=== PATIENT | female | born 1995 | race Caucasian/White ===

== ENCOUNTER 2022-01-11 15:24 | Emergency (ER) | payer BC, SELFPAY ==
[2022-01-11 15:43] VITALS: BP 131/94; PULSE 85; RESP 17; TEMP 36.6; O2SAT 100
[2022-01-11 16:11] LABS: Basophils Percent Auto 0.5 % (0.2-1.2); Eosinophils Absolute Auto 0.1 K/mm3 (0-0.3); Eosinophils Percent Auto 0.8 % (0-4.4); Hematocrit 40.7 % (37.0-47.0); Hemoglobin 13.9 g/dL (12.0-15.0); Immature Granulocyte Absolute 0.02 K/mm3 (0.00-0.031); Immature Granulocyte Percent A 0.3 % (0-0.5); Mean Corpuscular HGB Conc 34.2 g/dl (32-36); Mean Corpuscular Hemoglobin 29.1 pg (26-34); Mean Corpuscular Volume 85.3 fl (80-100); Mean Platelet Volume 9.7 fl (7.4-10.4); Monocytes Absolute Auto 0.4 K/mm3 (0.1-0.6); Monocytes Percent Auto 6.3 % (2.6-8.5); Neutrophils Absolute Auto 4.5 K/mm3 (1.3-6.7); Neutrophils Percent Auto 69.1 % (45.5-73.1); Platelet Count Result 293 k/mm3 (150-375); Red Blood Count 4.77 M/mm3 (4.2-5.4); Red Cell Distribution Width 12.7 % (11.5-14.5); White Blood Count 6.5 K/mm3 (4.5-10.0)
[2022-01-11 16:22] LABS: Alanine Aminotransferase 14 U/L (6-35); Albumin Level 4.2 g/dL (3.5-5.1); Alkaline Phosphatase 96 U/L (38-126); Anion Gap 7 mmol/L (8-16); Aspartate Amino Transferase 21 U/L (14-36); Bilirubin,Total 0.8 mg/dL (0.2-1.3); Blood Urea Nitrogen 7 mg/dL (7-17); Calcium 8.6 mg/dL (8.4-10.2); Carbon Dioxide 26 mmol/L (22-30); Chloride 105 mmol/L (98-107); Estimated CRCL calculation 133 ml/min; Estimated Glomerular Filt Rate > 60; Glucose 94 mg/dL (65-110); Lipase 50 U/L (23-300); Sodium 138 mmol/L (137-145)
[2022-01-11 16:32] LABS: Appearance Urine Slightly Cloudy (Clear); Bilirubin Urine 1+ (Negative); Blood Urine Negative (Negative); Color Urine Yellow (Yellow); Glucose Urine UA Negative (Negative); Ketones Urine Negative (Negative); Leukocyte Esterase Ur 2+ LEU/UL (Negative); Nitrate Urine Negative (Negative); Protein Urine 1+ mg/dL (Negative); Specific Grav Ur >= 1.030 (1.001-1.035); Urobilinogen Urine 0.2 mg/dL (<2.0); pH Urine 6.5 (5.0-9.0)
[2022-01-11 16:40] LABS: Bacteria Urine 1+ /hpf; Mucus Urine Heavy /lpf; RBC Urine 21-50 /hpf (0-2); Squamous Epithelial Cell Urine Many /hpf (Few); WBC Urine >75 /hpf
[2022-01-11 16:45] LABS: Add Urine Microscopic? YES
--- NOTE | 2022-01-11 17:50 | ED.ABDPAIN ---
HPI - Abdominal Pain General Chief Complaint: Abdominal Pain Stated Complaint: ABD PAIN X 2MONTHS Time Seen by Provider: 01/11/22 17:48 Source: patient Mode of arrival: ambulatory Limitations: no limitations History of Present Illness HPI narrative: Patient is a 26-year-old female who presents the ED with report of pain across her upper abdomen. Patient reports she has been dealing with this pain intermittently since she was 11 years old. She states the pain is random and does not occur every day. It does seem to be aggravated when she eats ice cream or milk, but not with other dairy products. She states Advil sometimes alleviates the pain. Over the past 2 months, patient reports having increasing pain. Today she had pain from around 7 AM to 12 PM. She did not take anything for the pain today. No report of pain upon my evaluation. Patient denies any other symptoms. Denies any fever, chills, nausea, vomiting, diarrhea, constipation, rectal bleeding, back pain, recent cough or cold symptoms, urinary frequency, dysuria, hematuria, hesitancy. Related Data Allergies Allergy/AdvReac Type Severity Reaction Status Date / Time amoxicillin Allergy Unknown Verified 12/09/15 08:21 Review of Systems Review of Systems: CONSTITUTIONAL: Denies fever, chills. ENT: Denies rhinorrhea, congestion, sore throat. CARDIOVASCULAR: Denies chest pain. RESPIRATORY: Denies cough or dyspnea. GASTROINTESTINAL: Reports pain across upper abdomen. Denies nausea, vomiting, rectal bleeding, constipation, or diarrhea. GENITOURINARY: Denies dysuria, frequency, hesitancy, or hematuria. MUSCULOSKELETAL: Denies back pain. NEUROLOGIC: Denies numbness, tingling, or weakness. All systems reviewed & are unremarkable except as noted in HPI and below PMFSH Past Medical History Medical History No pertinent past medical history Surgical History Surgical History (Updated 01/11/22 @ 18:37 by Roseann Mclean PA-C) No pertinent past surgical history Family History Family History (Updated 12/09/15 @ 08:22 by DOCTOR UNKNOWN) Other Family history of malignant melanoma Social History Social History Smoking status: Never smoker Alcohol intake: never Exam Narrative: GENERAL: Well appearing, well-nourished, non-toxic, in no acute distress. HEAD: Normocephalic, atraumatic. NECK: Supple. No adenopathy, no masses. RESPIRATORY: Airway patent, respirations nonlabored. Clear to auscultation bilaterally, no rales, rhonchi, wheezing. CARDIOVASCULAR: Regular rate and rhythm without murmurs, rubs, or gallops. Radial pulses 2+ and equal bilaterally. ABDOMINAL: Soft, no significant tenderness to palpation in any quadrant, nondistended, no hepatosplenomegaly. Normoactive BS. MUSCULOSKELETAL: Moves all extremities. Strength/ROM intact without gross deformities or TTP. SKIN: Warm, dry, normal color. No rashes. NEURO: A&O X3. Speech clear. Cranial nerves II-XII grossly intact. Steady gait. No ataxic movements. PSYCHIATRIC: Appropriate mood and affect. Normal interaction. Course Vital Signs Vital signs: Vital Signs Temperature 98 F 01/11/22 15:43 Pulse Rate 85 01/11/22 15:43 Respiratory Rate 17 01/11/22 15:43 Blood Pressure 131/94 H 01/11/22 15:43 Pulse Oximetry 100 01/11/22 15:43 Temperature 98 F 01/11/22 15:43 Pulse Rate 85 01/11/22 15:43 Respiratory Rate 17 01/11/22 15:43 Blood Pressure 131/94 H 01/11/22 15:43 Pulse Oximetry 100 01/11/22 15:43 MDM - Abdominal Pain MDM Narrative Medical decision making narrative: Patient presents to ED with reported years of pain across her upper abdomen, increasing over the last 2 months. Did have prolonged episode of pain today, but denies any pain upon my evaluation. She did not take anything for pain today. Vital signs stable upon arrival. Clinical examination and laboratory evalu
== END 2022-01-11 18:42 | disposition home or self-care (01) ==
LOC: ANHED 18:13
PROVIDERS: Emergency Medicine; Emergency Provider Emergency Medicine; PCP Physician Assistant
DX: N30.01 Acute cystitis with hematuria (principal)
CPT/HCPCS: 36415; 80053; 81001; 81025; 83690; 85025; 87086; 87088; 99283